=== PATIENT | female | born 1950 | race Hispanic/Latino ===

== ENCOUNTER 2018-12-19 14:09 | Outpatient (CLI) | payer MEDICARE ==
--- NOTE | 2018-12-19 15:46 | Mammography Report ---
BILATERAL DIGITAL SCREENING MAMMOGRAM WITH CAD INDICATION: Screening. COMPARISONS: 11/02/2014 FINDINGS: Craniocaudal and mediolateral oblique views of both breasts were obtained using 2-D digital acquisition. In addition to standard review, the examination was analyzed for possible abnormalities using a computer-assisted detection device (iCAD). The breast tissue is heterogeneously dense, which may obscure small masses. A left posterior asymmetry on the CC view requires additional imaging. No architectural distortion or suspicious calcifications. The right breast is negative. Bilateral benign calcifications, some of wh ich are arterial. IMPRESSION: Left asymmetry requiring additional workup. Recommend recall for CC and MLO spot compression views an d left breast ultrasound if needed. BI-RADS CATEGORY 0: INCOMPLETE - NEED ADDITIONAL IMAGING EVALUATION AND/OR PRIOR MAMMOGRAMS FOR COMP ARISON Information is entered into a reminder system for a target due date for the next mammogram. The resul ts and recommendations were sent to the patient by mail. Signer Name: Oracio Carvajal MD Signed: 12/19/2018 3:41 PM Workstation Name: [id number]
== END 2018-12-19 14:10 | disposition home or self-care (01) ==
LOC: SPVWC 14:09
PROVIDERS: ATTEND Internal Medicine
DX: Z12.31 Encounter for screening mammogram for malignant neoplasm of breast (principal)
CPT/HCPCS: 77067

== ENCOUNTER 2019-01-08 12:43 | Outpatient (CLI) | payer MEDICARE ==
--- NOTE | 2019-01-08 14:30 | Ultrasound Report ---
LEFT DIGITAL DIAGNOSTIC MAMMOGRAM WITH CAD -- 01/08/2019 LEFT LIMITED BREAST ULTRASOUND INDICATION: Abnormal density on screening mammography TECHNIQUE: Digital left mammographic imaging was performed. Spot compression views were obtained. Li mited ultrasound was performed. This examination was interpreted with the benefit of Computer-Aided D etection (CAD) analysis. COMPARISON: Screening mammography 12/19/2018, 11/02/2014, 10/07/2013, 10/04/2011 FINDINGS: Breast Density: The breasts are heterogeneously dense, which may obscure small masses. There is no evidence of dominant mass, suspicious calcifications or architectural distortion in eithe r breast. Density in question on screening examination improves with additional views, similar to francisco or studies. Ultrasound Findings: Targeted ultrasound evaluation was performed of the area of interest. No abnorma lities are seen in the area of radiographic concern. IMPRESSION: Density in question improves with additional views. Ultrasound is negative in this area. I believe this is unlikely to be significant but suggest 6 month follow-up left mammogram. BI-RADS Category 3: Probably Benign. A "normal" or negative report should not discourage follow up or biopsy of a clinically significant f inding. A written summary of these findings will be mailed to the patient. The patient will be entered into a mammography reporting system which will generate a reminder letter for the patient's next appointmen t at the appropriate interval. According to the [employer], yearly mammograms are recommended starting at age 40 and continuing as long as a woman is in good health. Breast MRI is recommended for women with an kennedy roximately 20-25% or greater lifetime risk of breast cancer, including women with a strong family his tory of breast or ovarian cancer and women who have been treated for Hodgkin's disease. Signer Name: Kelvin Tobar MD Signed: 01/08/2019 2:25 PM Workstation Name: [id number]
== END 2019-01-08 12:44 | disposition home or self-care (01) ==
LOC: SPVWC 12:43
PROVIDERS: ATTEND Internal Medicine
DX: R92.8 Other abnormal and inconclusive findings on diagnostic imaging of breast (principal)

== ENCOUNTER 2019-07-15 14:58 | Outpatient (CLI) | payer MEDICARE ==
--- NOTE | 2019-07-15 15:54 | Mammography Report ---
DIGITAL DIAGNOSTIC MAMMOGRAM WITH CAD, 07/15/2019 INDICATION: Six-month follow-up asymmetry. ABNORMAL MAMMO TECHNIQUE: Digital left mammographic imaging was performed. Spot compression views were obtained. This examination was interpreted with the benefit of Computer-aided Detection analysis. COMPARISON: 01/08/2019 FINDINGS: Breast Density: The breast is heterogeneously dense, which may obscure small masses. There is no evidence of dominant mass, suspicious calcifications or architectural distortion in the l eft breast. The previously identified asymmetry on the CC view is stable and shows complete effacemen t with spot compression. Asymmetry is no longer identified on the MLO view. IMPRESSION: No mammographic evidence of malignancy. Follow up recommendation: Routine yearly BI-RADS Category 2: Benign. A "normal" or negative report should not discourage follow up or biopsy of a clinically significant f inding. A written summary of these findings will be mailed to the patient. The patient will be entered into a mammography reporting system which will generate a reminder letter for the patient's next appointmen t at the appropriate interval. According to the [employer], yearly mammograms are recommended starting at age 40 and continuing as long as a woman is in good health. Breast MRI is recommended for women with an kennedy roximately 20-25% or greater lifetime risk of breast cancer, including women with a strong family his tory of breast or ovarian cancer and women who have been treated for Hodgkin's disease. Signer Name: Oracio Carvajal MD Signed: 07/15/2019 3:49 PM Workstation Name: [id number]
== END 2019-07-15 14:59 | disposition home or self-care (01) ==
LOC: SPVWC 14:58
PROVIDERS: ATTEND Internal Medicine
DX: R92.2 Inconclusive mammogram (principal)